=== PATIENT | male | born 1985 | race African-American/Black ===

== ENCOUNTER 2018-01-21 22:21 | Emergency (ER) | payer SELFPAY | END 2018-01-21 23:45 | disposition home or self-care (01) | LOC: ERS 22:21 | DX: J20.9 Acute bronchitis, unspecified (principal) | CPT/HCPCS: 87081; 87430; 99283 ==

== ENCOUNTER 2018-02-21 14:53 | Emergency (ER) | payer SELFPAY ==
--- NOTE | 2018-02-21 15:57 | RAD ---
RIGHT HAND 3 VIEWS: HISTORY: Right hand injury. FINDINGS: Joint spaces are preserved. No acute fracture, dislocation, or radiopaque foreign body. Ulna negati ve variant is noted. IMPRESSION: No acute osseous abnormalities are demonstrated. POS: [facility]
== END 2018-02-21 15:59 | disposition home or self-care (01) ==
LOC: ERS 14:53
DX: S60.221A Contusion of right hand, initial encounter (principal); L03.113 Cellulitis of right upper limb; Z87.891 Personal history of nicotine dependence; W23.0XXA Caught, crushed, jammed, or pinched between moving objects, initial encounter

== ENCOUNTER 2018-05-10 13:56 | Emergency (ER) | payer SELFPAY ==
[2018-05-10 15:20] LABS: #Eosinphils 0.3 thou/uL (0.0-0.7); #Monocytes 0.4 thou/uL (0.11-0.59); #Neutrophils 3.4 thou/uL (1.40-6.50); %Basophils 0.8 % (0.0-1.0); %Eosinophils 5.4 % (0.0-10.0); %Lymphocytes 19.5 % (21.0-51.0); %Neutrophils 67.3 % (42.0-75.0); Hemoglobin 14.5 g/dL (14.0-18.0); Mean Corpuscular Volume 91.3 fL (78.0-98.0); Mean Platelet Volume 8.1 fL (7.4-10.4); Platelet Count 202 thou/uL (130-400); RBC Distribution Width 11.9 % (11.5-14.5); Red Blood Cell (RBC) Count 4.66 mill/uL (4.70-6.10); White Blood Cell (WBC) Count 5.1 thou/uL (4.8-10.8)
== END 2018-05-10 16:53 | disposition left against medical advice (07) ==
LOC: ERS 13:56
DX: Z53.21 Procedure and treatment not carried out due to patient leaving prior to being seen by health care provider (principal)
CPT/HCPCS: 36415; 85025